=== PATIENT | male | born 1960 | race Caucasian/White ===

== ENCOUNTER 2019-02-15 16:00 | Emergency (ER) | payer OTHER ==
[~2019-02-15] VITALS: Ht 175.3 cm; Wt 95.3 kg
== END 2019-02-15 17:03 | disposition home or self-care (01) ==
LOC: ER 16:00
DX: S63.287A Dislocation of proximal interphalangeal joint of left little finger, initial encounter (principal); X50.0XXA Overexertion from strenuous movement or load, initial encounter; Y93.68 Activity, volleyball (beach) (court); Y92.89 Other specified places as the place of occurrence of the external cause; Y99.8 Other external cause status